=== PATIENT | female | born 2000 | race Caucasian/White ===

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

== ENCOUNTER 2022-02-07 17:43 | Emergency (ER) | payer OTHER ==
[2022-02-07 20:45] LABS: HEMOGLOBIN 13.8 gm/dl (12.3-15.3); RED BLOOD COUNT 4.66 M/UL (4.00-5.10); WHITE BLOOD COUNT 8.5 K/UL (4.5-11.0)
[2022-02-07 21:19] LABS: BUN/CREATININE RATIO 17 (0-10)
[2022-02-07] MEDS ORDERED: ZOFRAN ODT 4 MG4 MG SL (23:34)
[2022-02-07] MEDS ORDERED: TORADOL 10 MG T10 MG PO (23:34)
== END 2022-02-07 23:50 | disposition home or self-care (01) ==
LOC: ER1 17:43
PROVIDERS: Physician Assistant
DX: R10.9 Unspecified abdominal pain (principal); R10.819 Abdominal tenderness, unspecified site
CPT/HCPCS: 80053; 81001; 83690; 84703; 85025; 96374; 96375; 99284; J1885; J2405; Q9967